=== PATIENT | female | born 1970 | race Asian ===

== ENCOUNTER 2017-08-06 21:00 | Emergency (ER) | payer SELFPAY ==
[2017-08-06 21:34] VITALS: BP 129/91
[2017-08-06] MEDS ORDERED: ZOFRAN ODT ONE (21:54)
[2017-08-06] MEDS ORDERED: ZOFRAN ODT PO ONE (22:01)
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
[2017-08-07] MEDS ORDERED: TYLENOL ONE (00:33)
[2017-08-07] MEDS ORDERED: TYLENOL PO ONE (00:35)
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
[2017-08-07] MEDS ORDERED: BENADRYL IV ONE (04:58)
[2017-08-07] MEDS ORDERED: TORADOL IV ONE (04:58)
[2017-08-07] MEDS ORDERED: REGLAN IV ONE (04:58)
== END 2017-08-07 05:27 | disposition home or self-care (01) ==
LOC: ED 21:00
DX: S09.90XA Unspecified injury of head, initial encounter (principal); W22.8XXA Striking against or struck by other objects, initial encounter; Y93.89 Activity, other specified; Y92.89 Other specified places as the place of occurrence of the external cause; Y99.8 Other external cause status
CPT/HCPCS: 70450; 96374; 96375; 99283; J1200; J1885; J2765; Q0162